=== PATIENT | male | born 1965 | race Two or more races ===

== ENCOUNTER 2017-07-25 09:40 | Inpatient (IN) | payer OTHER ==
[~2017-07-25] VITALS: Ht 170.2 cm; Wt 81.6 kg
--- NOTE | 2017-07-25 09:56 | NUR ---
[id number] C/O BACK PAIN S/P FALL FROM 10 FT LADDER, "MY FOOT SLID DOWN FROM THE LADDER" NO KO. ON C-SPINE PRECAUTION. +C-COLLAR ON. PT A/OX4, [place] SPEAKING. ASSISTED TO ED BED 15. VSS PENDING ER MD EVALUATION
--- NOTE | 2017-07-25 10:43 | NUR ---
C-spine cleared by ER MD. Collar and backboard removed. Patient able to move all extremities before and after backboard removal.
[2017-07-25] MEDS ORDERED: MORPHINE SULFATE INJ 4 MG/ML DISP.SYRIN ONE (10:45)
[2017-07-25] MEDS ORDERED: ONDANSETRON HCL/PF 4 MG/2 ML VIAL ONE ×2 (10:45→10:48)
[2017-07-25] MEDS ORDERED: ONDANSETRON HCL/PF - ER 4 MG/2 ML VIAL IV ONE (11:00)
[2017-07-25] MEDS ORDERED: MORPHINE SULFATE INJ 2 MG/ML DISP.SYRIN IV ONE (11:00)
--- NOTE | 2017-07-25 12:56 | NUR ---
DR ROBERSON WAS PAGED FOR CONSULTATION ([phone])
--- NOTE | 2017-07-25 15:15 | NUR ---
pt to mri
[2017-07-25] MEDS ORDERED: Z GUARD REMEDY 2 OZ OINT TP PRN (15:30)
[2017-07-25] MEDS ORDERED: MAGNESIUM HYDROXIDE 30 ML UDC PO PRN (15:30)
[2017-07-25] MEDS ORDERED: ONDANSETRON HCL/PF 4 MG/2 ML VIAL IVP PRN (15:30)
[2017-07-25] MEDS ORDERED: MORPHINE SULFATE INJ 2 MG/ML DISP.SYRIN IV PRN (15:30)
[2017-07-25] MEDS ORDERED: MAG HYDROX/AL HYDROX/SIMETH 30 ML UDC PO PRN (15:30)
[2017-07-25] MEDS ORDERED: ZOLPIDEM TARTRATE 5 MG TABLET PO PRN (15:30)
--- NOTE | 2017-07-25 15:50 | NUR ---
[facility] ROOM 209-2
[2017-07-25 16:00] VITALS: BP 143/78
--- NOTE | 2017-07-25 17:07 | NUR ---
RN NOTES PATIENT RECEIVED FROM E.R. DEPARTMENT, PATIENT UNABLE TO MOVE AT THIS TIME, UNABLE TO ASSESS PATIENT'S BACK. PATIENT ALERT AND ORIENTED X4, ITAL[place] SPEAKING, IN SUPINE POSITION. KEPT NPO AT THIS TIME PER MD'S ORDER. WILL CONTINUE TO MONITOR.
[2017-07-25] MEDS: HYDROCODONE/APAP 5/325MG 1 EACH TABLET PO PRN ×2 (17:36→22:51)
[2017-07-25] MEDS: IV D5/0.45 NACL 1,000 ML IV PRN (17:43)
[2017-07-25] MEDS ORDERED: MORPHINE SULFATE INJ 4 MG/ML DISP.SYRIN IV PRN (18:30)
--- NOTE | 2017-07-25 19:30 | NUR ---
RN NOTES PATIENT ALERT AND ORIENTED X4, DENIES PAIN AT THIS TIME, PATIENT IS LYING FLAT, UNABLE TO MOVE BY HIMSELF. NEEDS ATTENDED AND MET, SKIN ASSESSMENT COMPLETED, SKIN DRY AND INTACT, CALL LIGHT WITHIN REACH, WILL ENDORSE TO SEAMAN OFFICER FOR NICHOLAS.
--- NOTE | 2017-07-25 19:55 | NUR ---
MS RN NOTE: PATIENT RESTING IN BED, NO ACUTE DISTRESS NOTED. BREATHING EVEN AND UNLABORED, NO SOB NOTED. IV TO RAC IN PLACE, INFUSING D5 1/2NS AT 75 ML/HR. BED LOCKED AND IN LOWEST POSITION, CALL LIGHT IN REACH. WILL CONTINUE TO MONITOR.
[2017-07-25 20:38] VITALS: BP 120/74
--- NOTE | 2017-07-25 23:00 | NUR ---
MS RN NOTE: PATIENT COMPLAINS OF BACK PAIN 01/24, NORCO 5/325MG ORAL GIVEN PER MD ORDER. WILL CONTINUE TO MONITOR.
[2017-07-26] MEDS: HYDROCODONE/APAP 5/325MG 1 EACH TABLET PO PRN ×4 (02:54→18:12)
--- NOTE | 2017-07-26 03:00 | NUR ---
MS RN NOTE: PATIENT COMPLAINS OF BACK PAIN 01/24, NORCO 5/325MG ORAL GIVEN PER MD ORDER. WILL CONTINUE TO MONITOR.
--- NOTE | 2017-07-26 06:30 | NUR ---
MS RN NOTE: PATIENT RESTING IN BED, NO ACUTE DISTRESS NOTED. BREATHING EVEN AND UNLABORED, NO SOB NOTED. IV TO RAC IN PLACE, INFUSING D5 1/2NS AT 75 ML/HR. BED LOCKED AND IN LOWEST POSITION, CALL LIGHT IN REACH. WILL ENDORSE TO DAY NURSE TO CONTINUE WITH PLAN OF CARE.
--- NOTE | 2017-07-26 07:30 | NUR ---
MS RN OPENING NOTES RECEIVED PATIENT IN STABLE CONDITION. IN NO APPARENT DISTRESS. BEDSIDE RAILS ARE UP X2 . BED IS LOCKED AND LOWERED. CALL LIGHT IS WITHIN REACH. WILL CONTINUE TO MONITOR.
[2017-07-26 08:00] VITALS: BP 131/76
[2017-07-26] MEDS: PANTOPRAZOLE 40 MG TABLET.DR PO SCH (08:16)
[2017-07-26] MEDS: IV D5/0.45 NACL 1,000 ML IV PRN ×2 (08:20→21:49)
[2017-07-26 08:49] LABS: BASOPHILS % (AUTO) 0.5 % (0.0-2.0); EOSINOPHILS # (AUTO) 0.2 /CMM (0.0-0.7); EOSINOPHILS % (AUTO) 3.3 % (0.0-6.0); HEMATOCRIT 41 % (39-51); HEMOGLOBIN 14.2 g/dL (13.5-17.5); LYMPHOCYTES # (AUTO) 1.9 /CMM (0.8-4.8); LYMPHOCYTES % (AUTO) 32.3 % (20.0-44.0); MEAN CORPUSCULAR HEMOGLOBIN 30 PG (26.0-33.0); MEAN CORPUSCULAR HGB CONC 35 g/dl (31.0-36.0); MEAN CORPUSCULAR VOLUME 85 fL (80-96); MONOCYTES # (AUTO) 0.4 /CMM (0.1-1.30); MONOCYTES % (AUTO) 7.2 % (2.0-12.0); NEUTROPHILS # (AUTO) 3.3 /CMM (1.8-8.9); NEUTROPHILS % (AUTO) 56.7 % (43.0-81.0); PLATELET COUNT (AUTO) 278 /CMM (150-450); RED BLOOD CELL COUNT(AUTO) 4.78 MIL/uL (4.5-6.0); WHITE BLOOD COUNT (AUTO) 5.8 K/uL (4.3-11.0)
[2017-07-26 09:01] LABS: INR 1.03 (0.87-1.13); PROTHROMBIN TIME 10.7 SECS (9.5-12.7)
[2017-07-26 09:11] LABS: ALBUMIN 3.6 g/dL (3.4-5.0); BILIRUBIN,TOTAL 0.7 mg/dL (0.2-1.0); CALCIUM, SERUM 8.5 mg/dL (8.5-10.1); MAGNESIUM 1.8 mg/dL (1.8-2.4); PHOSPHORUS 2.7 mg/dL (2.5-4.9); POTASSIUM 3.7 mmol/L (3.5-5.1); TOTAL PROTEIN, SERUM 7.2 g/dL (6.4-8.2)
[2017-07-26 09:23] LABS: CREATINE KINASE MB 5.2 ng/mL (0-3.6)
--- NOTE | 2017-07-26 10:28 | NUR ---
CALLED DR ROBERSON FOR NEUROLOGY CONSULTATION. LEFT A VOICEMAIL.
--- NOTE | 2017-07-26 12:18 | NUR ---
SPOKE TO PHYSICIAN ASSISTANT LANE WORKING WITH DR HALL. PLACED AN ORDER FOR A TLSO BRACE.
[2017-07-26] MEDS: ACETAMINOPHEN 325 MG TABLET PO PRN (14:06)
[2017-07-26 16:00] VITALS: BP 129/77
--- NOTE | 2017-07-26 19:24 | NUR ---
MS RN CLOSING NOTES PATIENT IS ALERT AND RESTING IN BED. IN NO APPARENT DISTRESS. BEDSIDE RAILS ARE UP X2 . CALL LIGHT IS WITHIN REACH. ALL NEEDS WERE MET. BED IS LOCKED AND LOWERED. WILL ENDORSE CARE TO PULLING UNIT OPERATOR NURSE FOR NICHOLAS.
[2017-07-26 20:00] VITALS: BP 118/69
--- NOTE | 2017-07-26 20:41 | NUR ---
SEEN BY PUSHPA CAMPOS, DIET CHANGED TO REGULAR DIET
[2017-07-26 20:48] VITALS: BP 118/69
[2017-07-27] MEDS: HYDROCODONE/APAP 5/325MG 1 EACH TABLET PO PRN ×4 (01:41→14:37)
--- NOTE | 2017-07-27 06:33 | NUR ---
RN NOTES PATIENT IS ALERT AND AWAKE NO SOB, NO DISTRESS, PROVIDED PAIN MEDICATION DURING SHIFT PRN, NO CHANGE OF CONDITION DURING SHIFT, TOLERATING ORAL INTAKE, ALL NEEDS ATTENDED, CALL LIGHT WITHIN REACH.
[2017-07-27 06:34] LABS: APPEARANCE,URINE CLEAR (CLEAR); BILIRUBIN,URINE NEGATIVE (NEGATIVE); BLOOD, URINE NEGATIVE Ery/uL (NEGATIVE); COLOR,URINE YELLOW (YELLOW); KETONES,URINE NEGATIVE (NEGATIVE); LEUKOCYTE ESTERASE ,URINE NEGATIVE (NEGATIVE); NITRITE, URINE NEGATIVE (NEGATIVE); PROTEIN,URINE NEGATIVE (NEGATIVE); UGLUCOSE 3+ mg/dL (NEGATIVE); UROBILINOGEN,URINE 0.2 EU/dL (0.2)
[2017-07-27 06:48] LABS: RBC,URINE 0-2 /HPF (0-2)
[2017-07-27 06:49] LABS: BACTERIA,URINE None seen /HPF (None Seen); SQUAMOUS EPITHELIAL CELL,UR 0-2 /HPF (None Seen); WBC,URINE 0-2 /HPF (0-3)
--- NOTE | 2017-07-27 07:30 | NUR ---
MS RN OPENING NOTES RECEIVED PATIENT IN NO APPARENT DISTRESS. CALL LIGHT IS WITHIN REACH. BEDSIDE RAILS ARE UP X2 . BED IS LOCKED AND LOWERED. WILL CONTINUE TO MONITOR.
[2017-07-27] MEDS: PANTOPRAZOLE 40 MG TABLET.DR PO SCH (07:44)
[2017-07-27 08:00] VITALS: BP 128/77
[2017-07-27] MEDS: IV D5/0.45 NACL 1,000 ML IV PRN (10:34)
[2017-07-27] MEDS: ACETAMINOPHEN 325 MG TABLET PO PRN (16:43)
--- NOTE | 2017-07-27 16:45 | NUR ---
PATIENT DISCHARGED IN STABLE CONDITION. IN NO APPARENT DISTRESS. VITAL SIGNS ARE STABLE. IV LINE WAS DISCONTINUED. ID BAND REMOVED. PATIENT WAS ESCORTED VIA WHEELCHAIR OUT OF THE FACILITY BY BUILDING SERVICES COORDINATOR.
== END 2017-07-27 17:00 | disposition home or self-care (01) | DRG 552 ==
LOC: ER 09:42 → EDBD 15:15 → TRANSITION 15:15 → TELE2 16:07 → MEDSG2 18:10
PROVIDERS: ADMIT Internal Medicine; ATTEND Internal Medicine
DX: S32.019A Unspecified fracture of first lumbar vertebra, initial encounter for closed fracture (principal); S22.089A Unspecified fracture of T11-T12 vertebra, initial encounter for closed fracture; D68.59 Other primary thrombophilia; E66.9 Obesity, unspecified; Z68.28 Body mass index [BMI] 28.0-28.9, adult; W11.XXXA Fall on and from ladder, initial encounter; Y93.H3 Activity, building and construction; Y92.69 Other specified industrial and construction area as the place of occurrence of the external cause
CPT/HCPCS: 36415; 70450-TC; 71045-TC; 72125-TC; 72128-TC; 72131-TC; 72148-TC; 73130-TC; 80053-TC; 80061-TC; 81000-TC; 82553-TC; 83735-TC; 84100-TC; 85025-TC; 85730-TC; 87040-TC; 87081-TC; 87086-TC; A4606; J2270; J2405; J3490; Z7610